=== PATIENT | male | born 1990 | race Caucasian/White ===

== ENCOUNTER 2018-01-26 00:35 | Emergency (ER) | payer SELFPAY ==
[~2018-01-26] VITALS: Ht 175.3 cm; Wt 66.0 kg
[2018-01-26] MEDS ORDERED: KETOROLAC 15MG/ML VIAL IM ONE (04:45)
[2018-01-26] MEDS ORDERED: ACETAMINOPHEN 325MG TABLET PO ONE (04:45)
[2018-01-26] MEDS ORDERED: TRAMADOL 50MG TABLET PO ONE (06:00)
[2018-01-26 07:51] VITALS: BP 124/71
== END 2018-01-26 08:08 | disposition home or self-care (01) ==
LOC: ER 00:49
DX: S39.92XA Unspecified injury of lower back, initial encounter (principal); M19.90 Unspecified osteoarthritis, unspecified site; W01.0XXA Fall on same level from slipping, tripping and stumbling without subsequent striking against object, initial encounter; Y93.89 Activity, other specified; Y92.480 Sidewalk as the place of occurrence of the external cause
CPT/HCPCS: 70450; 72131; 96372; 99284; J1885